=== PATIENT | female | born 1985 | race Caucasian/White ===

== ENCOUNTER 2017-01-28 02:33 | Emergency (ER) | payer OTHER ==
[~2017-01-28] VITALS: Ht 172.7 cm; Wt 158.8 kg
[2017-01-28] MEDS ORDERED: VYVA60CA PO (02:49)
[2017-01-28] MEDS ORDERED: CLON1TAB PO (02:49)
[2017-01-28] MEDS ORDERED: VENL75TA2 PO (02:49)
[2017-01-28 04:10] VITALS: BP 156/91
== END 2017-01-28 04:11 | disposition home or self-care (01) ==
LOC: M ED 03:57
DX: F43.0 Acute stress reaction (principal); Z79.899 Other long term (current) drug therapy